=== PATIENT | male | born 1995 | race Caucasian/White ===

== ENCOUNTER 2017-02-19 17:15 | Inpatient (IN) | payer OTHER ==
[~2017-02-19] VITALS: Ht 170.2 cm; Wt 57.5 kg
--- NOTE | ~2017-02-19 | HP ---
PATIENT'S NAME: MARIE PATEL [facility] AGE: 21 Y [address] ROOM: [address]3204 [place], [place] [address] LOCATION: [facility] [place] ADMIT DATE: 02/19/2017 History & Physical DISCHARGE DATE: FAMILY PHYSICIAN: Tom Gao MD ATTENDING PHYSICIAN: Doug Alcantara DATE OF SERVICE: CHIEF COMPLAINT: Acute encephalopathy in the setting of presumed drug ingestion. HISTORY OF PRESENTING ILLNESS: This 21-year-old white male with previous history of polysubstance abuse was transferred to [facility] from [facility] with symptoms of acute confusion and disorientation. Apparently, he was picked up by law enforcement earlier today after entering somebody's home that he was not acquainted with. He was not behaving in an aggressive way, but did not seem to be able to comprehend or follow commands. He was subsequently taken to the [facility], where it was suspected that he may have ingested some substance. Later, it was revealed by a roommate that he may have taken "acid." His father indicates that he had also been regularly using "tangerine marijuana." The family had recently taken a vacation to [place] and while mom and dad retired to their cabin for the evening, the patient went into the town and "bought some stuff." They are unsure of the types of drugs and the quantity, except for the marijuana. Later, after returning home on Tuesday, he had spent normal day before going to work on Tuesday night. He works at a factory in [place]. He had apparently behaved normally over the course of the night and left work normal at 7 a.m. on Tuesday morning. This was the last time anybody had seen him normally before he was arrested this morning. During his emergency room evaluation in [place], he was confused, exhibiting staring episodes, but seemed to understand and make eye contact with staff. He had several episodes of urinary incontinence over the course of the day. There has not been any aggressive or agitated-type behavior, and he has not shown any seizure-like symptoms. He did undergo a CT scan of the head which was reportedly normal. On his arrival here in [place], he is awake and makes eye contact, but does not seem to be able to comprehend. He does nod his head yes and no in simple fashion to questions, but at times inappropriately. He is only minimally able to follow simple commands like eye closing and hand grasp. He appears comfortable and in no apparent distress, except for deep respiration and occasional sighing. Mother and father reported that he has been in generally good health otherwise as of late. He has not had any other hospitalizations or similar episodes in PATIENT'S NAME: MARIE PATEL [facility] AGE: 21 Y [address] ROOM: [address] [address] LOCATION: [facility] [place] ADMIT DATE: 02/19/2017 History & Physical DISCHARGE DATE: FAMILY PHYSICIAN: Tom Gao MD ATTENDING PHYSICIAN: Doug Alcantara the past. He has no significant criminal history. ALLERGIES: NO KNOWN DRUG ALLERGIES. ILLNESSES: ADHD as a child. CURRENT MEDICATIONS: None. FAMILY HISTORY: Negative for psychiatric disorders, seizures, diabetes, or kidney problems. SOCIAL HISTORY: He is single. Lives in [place] with a couple of roommates. 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 He does have a significant history of polysubstance use including tobacco, marijuana, alcohol, and LSD. It is unknown precisely which drugs and in what quantities. REVIEW OF SYSTEMS: As per HPI. All other organ systems are reviewed per the patient, parents, and chart and are negative. OBJECTIVE: VITAL SIGNS: Temperature 100.1, pulse 115, respirations 18, blood pressure 142/74, O2 saturation 99%, weight is 57.5 kg. GENERAL: He is awake, generally cooperative, but not interactive, in no acute distress. SKIN: Supple, pale, warm, dry. He has mild acne vulgaris, but there are no skin rashes. He has DuraGen debris in the intertriginous areas of the nails. HEENT: Otherwise, normocephalic. Sclerae are nonicteric. Pupils are equal and round, 2-3 mm, slowly reactive to light. Extraocular movements appear intact. Nasal turbinates are normal in appearance. Oropharynx is clear. Mucous membranes are pink and moist. NECK: Supple. No masses. No adenopathy. No thyromegaly. No JVD. CHEST: Chest wall is symmetrical. HEART: Tachycardic, but regular. LUNGS: Diminished, coarse with scattered wheezes. No areas of consolidation. ABDOMEN: Soft, flat, nontender. Bowel sounds are present. No mass. No hepatosplenomegaly. : Not done. RECTAL: Not done. EXTREMITIES: Display no clubbing, cyanosis, or edema. NEUROLOGIC: He moves all extremities equally. There are no obvious focal PATIENT'S NAME: MARIE PATEL [facility] AGE: 21 Y [address] ROOM: [place] [address] LOCATION: [facility] [place] ADMIT DATE: 02/19/2017 History & Physical DISCHARGE DATE: FAMILY PHYSICIAN: Tom Gao MD ATTENDING PHYSICIAN: Doug Alcantara, except for the neuropsychiatric disturbance outlined above. LABORATORY AND X-RAY DATA: From [place], CT scan of the head is negative for any acute intracranial process. A 12-lead EKG shows a sinus rhythm. CBC showed a white blood cell count of 12.4, hemoglobin of 15.7, hematocrit 47, platelets 275. Chemistries revealed BUN and creatinine of 13 and 0.8, respectively; sodium and potassium 138 and 3.5; chloride and CO2 of 102 and 20; glucose 103; AST and ALT 17 and 14; bilirubin 1.4. ASSESSMENT AND PLAN: 1. Acute encephalopathy, secondary to drug ingestion. He is hemodynamically stable, and there is no significant evidence of end-organ dysfunction. We will admit for supportive cares. It is difficult to know precisely what he took based on the available history, his symptoms could be consistent with classic LSD intoxication. I discussed this at length with the patient's mother and father, who expressed understanding. I would consider specialty evaluation by Neurology. We will initiate some IV fluids with normal saline and observation overnight. We will utilize benzodiazepine therapy with Ativan for relief of agitation and restlessness and in the extreme case, Haldol. We will try to keep a quiet, dark, non-confrontational environment to minimize stimulating agitation. If his clinical condition is not improving or worsening over the course of the next 12 hours, we will consider Neurology evaluation and/or Psychiatry evaluation. There does not appear to be any indication for specific intervention or antidotal therapy. 2. Urinary incontinence, presumably related to encephalopathy as described above. We will provide routine nursing cares, clinical monitoring, and expect resolution. If necessary, consider additional urologic workup. 3. Hyperbilirubinemia, mild. Favor continued clinical follow up. We will hold off on any additional testing. 4. Deep venous thrombosis prophylaxis. He is very low risk. We will consider adding the VTE protocol if he remains hospitalized beyond 48 hours. MD ANA VILLALTA/jaclyn /[id number] D: [id number] T: [id number] HISTORY & PHYSICAL
--- NOTE | ~2017-02-19 | CON ---
PATIENT'S NAME: MARIE PATEL [facility] AGE: 21 Y [address] ROOM: [address] [address] LOCATION: [facility] [place] ADMIT DATE: 02/19/2017 Consultation DISCHARGE DATE: FAMILY PHYSICIAN: Tom Gao MD ATTENDING PHYSICIAN: Doug Alcantara DATE OF CONSULTATION: 02/21/2017 DATA: The patient is a 21-year-old male, currently admitted to [facility]. Consultation requested by Dr. Alcantara. DIAGNOSES AT THE TIME OF THIS EVALUATION: 1. Delirium, acute, hypoactive, due to polysubstance use. 2. Hallucinogen use disorder. 3. Cannabis use disorder. RECOMMENDATIONS: 1. As already discussed, after talking about risks, benefits, side effects, and alternatives, the patient's father voiced consent and even preference for putting the patient on an antipsychotic. The patient is going to be on Zyprexa 5 mg in the morning and 15 mg at night. If the patient becomes sedated, please we can lower to 5 in the morning and 10 at night or even just 10 at night depending on the result, but the first dose should be full 20 mg in a day. 2. After discharge, the patient should follow up with a dual-diagnosis therapist to consider alternatives for substance use treatment. HISTORY OF PRESENT ILLNESS: This young man ended up in the hospital, a transfer actually, after he was entering somebody's home. Police were called. He was confused, unable to understand all the questions, was immediately sent to the hospital, and transferred to [facility]. The patient has been incontinent, masturbating in front of people, talking incoherently, and being disoriented, so a psychiatric consultation was requested. I came to [facility], reviewed the electronic records and the paper records, and talked to the nurse for collateral information, the MEDICAL TRANSCRIBER, and also with the patient in the company of his father and brother. The patient is cooperative, but a poor historian. He gets very easily distracted, cannot follow a conversation completely. He is partially oriented, but again judgment is obviously quite impairing his comments. He was talking about having sex with his mother. He is nevertheless eating well and sleeping well. There have been times he appears to be somewhat internally stimulated in report. SUBSTANCE USE HISTORY: PATIENT'S NAME: JORGE [facility] AGE: 21 Y [address] ROOM: [place] [address] LOCATION: [facility] [place] ADMIT DATE: 02/19/2017 Consultation DISCHARGE DATE: FAMILY PHYSICIAN: Tom Gao MD ATTENDING PHYSICIAN: Doug Alcantara The patient agrees that he has been using hallucinogens, LSD, and cannabis, both smoking and eating. No treatment for this in the past. PAST PSYCHIATRIC HISTORY: Prior history of ADHD, but no hospitalizations. No current psychotropic medications other than the Zyprexa p.r.n. that has been prescribed in [facility]. No previous suicide attempts. MEDICAL HISTORY: Per Dr. Alcantara's H and P. PERSONAL HISTORY: He lives in [place] with a roommate, works in a plastic factory. Single, never . No children. HISTORY OF ABUSE: Noncontributory. The patient has never been abused physically, sexually, or psychologically. FAMILY HISTORY: Noncontributory. MENTAL STATUS EXAMINATION: This is a , young man. Cooperative. Good hygiene. Poor eye contact. He wanders around with his eyes. Speech is normal in volume and tone, odd in production. Mood is labile. Affect is labile. Thought content is relevant by the patient not endorsing suicidal or homicidal ideation. Right now, denying any auditory or visual hallucinations, but has been seen internally stimulated. No delusional thoughts. Thought process is coherent, but not congruent. Some loosening of association. Lots of distractibility, circumstantiality, tangentiality. Insight and judgment seem to be impaired. Memory could not be formally tested actually because of how distracted he is at the present time. Level of alertness seems to be variating, and he is just partially oriented. Intelligence is deemed average. STRENGTHS: Intelligence. BARRIERS: Current delirium plus substance use. LOUIS ROLAND MD PATIENT'S NAME: JORGE [facility] AGE: 21 Y [address] ROOM: [place] [address] LOCATION: [facility] [place] ADMIT DATE: 02/19/2017 Consultation DISCHARGE DATE: FAMILY PHYSICIAN: Tom Gao MD ATTENDING PHYSICIAN: Doug Alcantara/jaclyn /[id number] d: 02/21/17 1201 t: 02/22/17 1101, CONSULTATION REPORT
--- NOTE | ~2017-02-19 | DS ---
PATIENT'S NAME: MARIE PATEL [facility] AGE: 21 Y [address] ROOM: [address] [place], [place] [address] [facility] [place] ADMIT DATE: 02/19/2017 Discharge Summary DISCHARGE DATE: 02/23/2017 FAMILY PHYSICIAN: Tom Gao MD ATTENDING PHYSICIAN: Doug Alcantara PRINCIPAL DIAGNOSES: 1. Acute encephalopathy. 2. Polysubstance abuse. HOSPITAL COURSE: Please reference any of the admitting data to the history and physical as dictated by Dr. Doug Alcantara. This is a 21-year-old male who presented from an outside facility with acute encephalopathy secondary to polysubstance abuse induction. The patient was admitted to the med-surg unit with one-to-one observation in the room with strict fall precautions and no TV, no telephone, no visitors except for mother and father. He was given Ativan and Haldol and supportive cares. Laboratory evaluation did not show any acute problem. He had a mild elevation in his bilirubin, but AST and ALT were normal. The patient had multiple events of hyperactive delirium with behavioral attributes. He was having flight of ideas as well as hypersexual behaviors. Often times, he did not follow commands and did require intramuscular Zyprexa. We had a psychiatrist consultation from Dr. Shukla who felt the delirium was an acute problem due to his polysubstance abuse. He prescribed a Zyprexa regimen for the patient; however, because of his lack of response, he required additional Haldol and Ativan. On the afternoon of 02/22, the patient awoke from sleep with an improved state of consciousness. He was able to rationalize appropriately. We kept him and observed him overnight without any acute events or behaviors. On the morning of discharge, the patient did not recall any other events; however, was able to recall that he had been smoking marijuana laced with acid. He denied any suicidal thoughts or homicidal thoughts and appeared to be back towards his normal self. He was given extensive drug cessation education as well as resources for rehabilitation. It was recommended that the patient followup with a psychiatrist and a full chemical dependency evaluation as an outpatient. He had good parental and sibling support throughout his hospitalization and was felt stable and in good condition on the day of discharge. CONSULTING PROVIDERS: Earl Shukla MD, psychiatrist. LABORATORY FINDINGS: CBC showed a white blood cell count of 10.0, hemoglobin of 15.7, hematocrit of 46.1, and platelet count of 256. PATIENT'S NAME: MARIE PATEL [facility] AGE: 21 Y [address] ROOM: [address] [place], [place] [address] LOCATION: [facility] [place] ADMIT DATE: 02/19/2017 Discharge Summary DISCHARGE DATE: 02/23/2017 FAMILY PHYSICIAN: Tom Gao MD ATTENDING PHYSICIAN: Doug Alcantara chemistry panel showed a glucose of 75, BUN of 16, and creatinine of 1.0. Sodium 139, potassium of 3.6, chloride 107, a CO2 of 20, and a GFR of greater than 90. Liver functions show an AST of 14 and ALT of 17. Total bilirubin of 2.0, was 1.4 respectively at outlying facility. A urine drug screen was positive for THC. Acetaminophen and salicylate levels and alcohol levels were all negative. DISCHARGE MEDICATIONS: None. DISCHARGE INSTRUCTIONS: The patient can resume a normal diet and normal activity. However, should refrain from work until next Tuesday. A prescription was written. He should have evaluation by a psychiatrist and chemical dependency licensed mental health professional within the next few days. Our dog daycare provider and clinical social work therapist gave he and his family resources and cessation education in regard to drug abuse and use. The patient does report he is ready to stop using drugs which is the first step to breaking the addiction. He understands the importance of compliance with followup and avoidance of triggers. Both his father and brother were in the room at the time of discharge and the above line of management was discussed with the patient and his family. They stated complete understanding and multiple questions were answered with statements of satisfaction. We will try to establish a followup visit with the psychiatrist and chemical economist within the next couple of days, but if he has any concerns before, then he is to see his primary care doctor, Dr. Gao accordingly. Thank you for allowing us to participate in the care of this patient while at [facility]. SANIYA PEDRAZA APRN, MD JIR/jaclyn GONZALES: 02/23/2017 11:15:14 /[id number] CC: MD Earl Angela MD d: 02/24/17 0353 t: 02/28/17 1404, DISCHARGE SUMMARY
[2017-02-19 23:59] LABS: AMPHETAMINE NEGATIVE (NEGATIVE); BARBITURATE NEGATIVE (NEGATIVE); COCAINE NEGATIVE (NEGATIVE); OPIATES NEGATIVE (NEGATIVE)
--- NOTE | 2017-02-20 03:23 | NUR ---
Significant Event: 21 year old male admitted with drug induced encephalopathy from [place]. He is not able to speak and dad and mom are filling in his history. Apparently patient took acid on February 18 and some marijuana. Was found to be wondering in houses and cars, when police picked him up. Family at bedside. Started on IV fluids, no visitors except parents, no TV. Doesn't take any medications and only has a previous history ADHD. Follow up: Continue to monitor.
--- NOTE | 2017-02-20 04:09 | NUR ---
Significant Event: Patient non-verbal at start of shift and slept until about midnight. At that time we attempted to get a Urine Drug screen. Patient did void about 100 in the urinal but also has and was incontinent of urine. Urine drug screen was positive for marijuana. Patient was awake until around 0200 and was talking some but not making much sense. Does know he is in [facility]. Does not remember that he was in someone's house. States he only took some LSD. Sighing alot, short words, and was incontinent again. Ativan 1mg given IV at 0200. Patient resting quietly now. Father at bedside. Follow up: Continue to monitor.
--- NOTE | 2017-02-20 09:20 | NUR ---
D: perinatal breastfeeding assistant sitting on 1:1 with patient called nurse into room. When arrived in room patient fondling his erect penis. I asked patient what he was doing and asked him to stop masterbating in front of nursing staff. Patient states "why, it is so hard and I am so horney. I know what will make it go down". Nurse reminded patient that if he would stop touching his penis it would not longer be hard and hurt. I: Continued to encourage patient and redirect him to quit fondling his penis.
--- NOTE | 2017-02-20 14:55 | NUR ---
Significant event: Has been inappriate at times, with words and actions. Answers questions at times appropriately and at times inappropriately. Has been incontinent of urine, has voided on floor and has used toilet. At times is singing or "rapping" songs. Discontinued own IV. Has been fidgeting and pulling at clothes and briefs, redirected often. Threw plate of food on floor "because I did not like it". Dad at bedside and tries to redirect his behaviors. When speaking with nurse often has a confused look on his face and then asks what I said and I will repeat question and he will say "that is not what you said first". Told nurse about his recent vacation with his family and able to remember some of the details. Reports he knows he did LSD and that he was in [facility] yesterday and then came to hospital but not sure how he got here.
--- NOTE | 2017-02-20 17:22 | NUR ---
ASSUMED CARES FROM KAILASH AT 1600. PATIENT REMAINS DISORIENTED. CONTINUES TO MAKE STATEMENTS THAT APPEAR THOUGH HE HAS AUDITORY HALLUCINATIONS. THOUGHT PROCESS SCATTERED. IM ZYPREXA GIVEN X1 AT 1615 TO RIGHT THIGH. APPEARS EFFECTIVE AT THIS POINT. PRN ORAL ZYPREXA ORDERED. DAD AT BEDISED VERY HELPFUL WITH PATIENT. PATIENT VERY IMPULSIVE. REMAINS ON A 1:1. NO IV ACCESS PER MD. PSYCH TO CONSULT.
--- NOTE | 2017-02-21 03:24 | NUR ---
Significant Event: Pt has slept all of shift. Will wake up for assessments, but did not answer any questions that were asked, would just reposition and go back to sleep. VSS, RA, afebrile. No IV access. MD order no TV, no phone, no visitors. Parents are ok. Dad is at bedside. Remains in 1:1 observation Follow up: psych consult, continue to monitor
[2017-02-21 06:03] LABS: BASOPHIL # 0.1 K/uL (0.0-0.2); BASOPHIL % 0.5 %; EOSINOPHIL # 0.3 K/uL (0.0-0.5); EOSINOPHIL % 2.8 %; HEMATOCRIT 46.1 % (37.0-53.0); HEMOGLOBIN 15.7 g/dL (12.0-17.0); IMMATURE GRANULOCYTE % 0.2 %; LYMPHOCYTE # 2.8 K/uL (0.8-4.0); LYMPHOCYTE % 27.6 %; MCH 30.1 pg (27.0-34.0); MCHC 34.1 gm/dL (32.0-36.5); MCV 88.5 fl (83.0-98.0); MONOCYTE # 1.1 K/uL (0.0-1.0); MONOCYTE % 11.1 %; MPV 9.1 fl (9.4-12.4); NEUTROPHIL # (ANC) 5.8 K/uL (1.4-9.0); NEUTROPHIL % 57.8 %; NRBC % 0 /100WBC (0-0.00); PLATELET COUNT 256 K/uL (150-450); RBC 5.21 M/uL (4.00-6.00); RDW-CV 12.2 % (11.9-14.6)
[2017-02-21 06:23] LABS: ALBUMIN 4.3 gm/dL (3.5-5.0); ALK PHOS 70 IU/L (33-138); ALT 17 IU/L (12-78); ANION GAP 15.6 (10.0-19.0); AST 14 IU/L (10-40); BLOOD UREA NITROGEN 16 mg/dL (6-24); CALCIUM 9.3 mg/dL (8.5-10.5); CHLORIDE 107 mMol/L (96-110); CO2 20 mMol/L (22-32); POTASSIUM 3.6 mMol/L (3.7-5.1); SODIUM 139 mMol/L (135-145); TOTAL PROTEIN 8.1 g/dL (6.0-8.4)
--- NOTE | 2017-02-21 17:50 | NUR ---
Patient is alert and oriented, at times. He is very irritable, confused at times, hallucinating visually and auditory. Dr. Shukla saw today and ordered Zyprexa 5mg PO Qday and 15mg PO at HS. He refused to take the PO earlier and IM was given. He is now irritable and another IM order was received. Will give as soon as it arrives from pharmacy. Parents and brother have been with the patient most of the day. He usually falls asleep for a few hours after the Zyprexa.
--- NOTE | 2017-02-22 07:04 | NUR ---
Significant Event: PT WAS ALERT AND ORIENTED X3 UPON INITAL ASSESSMENT. WAS CALM ON COUCH IN ROOM AND ABLE TO HOLD PLEASANT CONVERSATION WITH STAFF. PT FATHER WASN'T PRESENT AT THE TIME OF ASSESSMENT. DURING BP CUFF AND PULSE OX PLACEMENT PT SAID, "MAN, I AM GETTING HARD AGAIN." I IGNORED THIS COMMENT AND CONTINUED MY ASSESSMENT. HE BEGAN MASTERBATING AND SAID HE WAS READY TO "FUCK." I TOLD HIM I WAS HIS NURSE AND THAT WAS THE EXTENT OF OUR RELATIONSHIP. HE SAID, "THIS ISN'T A WHORE HOUSE?" I SAID, "NO, THIS IS A HOSPITAL AND I AM YOUR NURSE. I NEED YOU TO SIT STILL SO I CAN GET YOUR VITALS. HE PULLED HIS PANTS DOWN, BEGAN MASTERBATING IN FRONT OF ME AND SAID, "ALRIGHT, I AM READY FOR YOU." I TOLD HIM AGAIN I WAS HIS NURSE AND I AM NOT HERE FOR HIS PLEASURE. AT THIS TIME GEMA WALKED IN AND I HAD ASKED HER TO GET KATIE FOR HELP. KATIE WALKED IN AND ATTEMPTED TO REDIRECT THE PATIENT AND ASKED HIM TO "BEHAVE." IT TOOK A FEW TIMES OF REDIRECTING THE PT BEFORE HE COMPLIED AND STOPPED MASTERBATING. KATIE AND I LEFT THE ROOM AND WITHIN A MINUTE WE OVERHEARD HIM YELL "FUCK." WHEN WE RETURNED TO HIS ROOM GEMA WAS ATTEMPTING TO CALM HIM DOWN, AND THE PT WAS STANDING BY HIS COUCH WITH HIS ARMS RAISED YELLING, "WHERE THE FUCK IS MY DOCTOR?" WE BEGAN EXPLAINING TO THE PT WHERE HIS DOCTOR WAS AND HE STARTED SINGIN SONGS, YELLING BELIGERANTLY, WHILE PUNCHING THE WINDOW/WALL THEN BEGAN JUMPING FROM COUCH TO CHAIR TO BED AND CONTINUED IN THIS FASHION FOR A FEW MINUTES. WE WERE ABLE TO GET HIM TO STOP JUMPING ON THE FURNITURE BUT HE STARTED TO HAVE A THREATENING STANCE TOWARDS THE STAFF AND WAS WALKING TOWARDS US. SECURITY WAS CALLED WELL THE PRIVATE SECURITY GUARD. HIS DAD ENTERED THE ROOM AND THE PATIENT CALMED DOWN SOME. HE CONTINUED TO BE RESTLESS; WALKING AROUND THE ROOM MESSING WITH EVERY OBJECT HE COULD TOUCH. ATTEMPTED TO LEAVE THE ROOM A FEW TIMES. THE MD WAS INFORMED OF THE SITUATION AND PT WAS GIVEN HALDOL, BENADRYL, AND ATIVAN IM. PT RESTED WELL FOR REST OF SHIFT WITH DAD AT BEDSIDE. SECOND ASSESSMENT NOT PERFORMED PER PT BEHAVIOR. Follow up:
--- NOTE | 2017-02-22 15:07 | NUR ---
SPOKE TO PATIENT AND HIS FATHER AT THE BEDSIDE. INTRODUCED CM AND OUR ROLE. PATIENT IS ALERT HE TELLS ME " I AM DOING BETTER." HIS FATHER MEET WITH ME OUTSIDE OF THE ROOM HE VOICES CONCERNS ABOUT MARIE GOING HOME TO HIS APARTMENT AND HOPES THAT HE WILL AGREE TO MOVE IN WITH HIM. HE ALSO VOICES CONCERNS ABOUT MARIE STILL HAVING A JOB ONCE HE IS DISCHARGED. HIS PLAN IS TO TALK TO MARIE ABOUT MOVING IN WITH HIM AND HE FEELS THAT MARIE NEEDS TO DO OUTPT COUNSELING. I TOLD HIM ONCE MARIE IS READY FOR DISCHARGE THAT WE CAN GIVE THEM RESOURCES FOR COUNSELING. AND HIS DAD IS IN AGREEMENT TO THIS. WILL MEET WITH PATIENT AND HIS FATHER ABOUT THIS ONCE HE IS MORE ALERT HIS DAD TELLS ME THAT MARIE STILL HAS MOMENTS WHEN HE IS NOT APPROIATE WHEN HE IS TALKING. WILL CONT TO FOLLOW NEEDED.
--- NOTE | 2017-02-22 15:26 | NUR ---
Patient is alert and oriented, VSS. on room air. Independent. 1:1 sitter. Slept all morning but was in a much better frame of mind when he woke up. He will still make "off the wall" comments but is much more relaxed and cooperative. Has not said any sexual comments or made any vulgar actions. He has been relaxing in his bed with his father and brother at the bedside. Mike was DC'd and an order was received to have TV but no music.
--- NOTE | 2017-02-23 03:54 | NUR ---
SIGNIFICANT EVENT: CALM AND COOPERATIVE WITH CARES. HAD A BM OVER NIGHT. VSS. 1:1. POSSIBLE DISCHARGE IN THE AM. ALL MEDICATIONS, INCLUDING PRN DC'D.
--- NOTE | 2017-02-23 11:00 | NUR ---
RECEIVED REFERRAL TO GIVE PATIENT INFO FOR OUTPT TREATMENT OPTIONS. SPOKE TO PATIENT HE IS OPENED TO HAVING INFO FOR OUTPT TREATMENT. HIS DAD IS GOING TO HELP HIM TO FIND OUTPT TREATMENT. I GAVE THE A LIST OF PLACED IN [facility] AND [facility] SINCE THEY ARE FROM [place]. PATIENT AND HIS DAD ARE GOING TO CALL AND ARRANGE FOR [facility] TO MEET WITH SOMEONE. THEY DENIE ANY OTHER NEEDS OR CONCERNS AT THIS TIME. PATIENT IS ALERT AND ORDIENATED AND COOPERATIVE. HE IS HAPPY THAT HE IS BEING DISHCARGE HOME TODAY.
--- NOTE | 2017-02-23 16:20 | NUR ---
DISCHARGE INSTRUCTIONS & HANDOUTS EXPLAINED & GIVEN TO PT.,VERBALIZED UNDERSTANDMENT.DISMISSED TO CAR PER PEDIS FOR DISMISSAL ACCOMP.BY NURSE,DAD,& BROTHER.
== END 2017-02-23 16:30 | disposition disaster alternative care site (69) | DRG 896 ==
LOC: GMSU 18:08
PROVIDERS: ADMIT Family Medicine
DX: F19.10 Other psychoactive substance abuse, uncomplicated (principal); G93.40 Encephalopathy, unspecified; F90.9 Attention-deficit hyperactivity disorder, unspecified type; R32 Unspecified urinary incontinence; E78.5 Hyperlipidemia, unspecified; F16.10 Hallucinogen abuse, uncomplicated; F12.10 Cannabis abuse, uncomplicated
CPT/HCPCS: G0480; J1200; J1630; J2060; J7030